=== PATIENT | female | born 1935 | race Caucasian/White ===

== ENCOUNTER → 2016-03-18 | Outpatient (CLI) | payer MEDICARE, OTHER ==
[2016-03-18 12:21] LABS: ABSOLUTE BASOPHILS # (AUTO) 0.1 10^3/uL (0.0-0.2); ABSOLUTE EOSINOPHILS # (AUTO) 0.2 10^3/uL (0.0-0.6); ABSOLUTE MONOCYTES (AUTO) 0.3 10^3/uL (0.1-1.4); ABSOLUTE NEUT (AUTO) 3.2 10^3/uL (1.7-8.2); EOSINOPHILS % (AUTO) 3.6 % (0-6); HEMATOCRIT 43.7 % (36.0-47.0); HEMOGLOBIN 14.4 g/dL (12.0-15.5); HGB HCT DIFFERENCE -0.5; LYMPHOCYTES % (AUTO) 34.7 % (13-45); MEAN CORPUSCULAR HEMOGLOBIN 27.4 pg (27.0-33.4); MEAN CORPUSCULAR VOLUME 83 fl (80-97); MONOCYTES % (AUTO) 5.5 % (3-13); RED BLOOD COUNT 5.25 10^6/uL (3.72-5.28); RED CELL DISTRIBUTION WIDTH 15.4 % (11.5-14.0); SEGMENTED NEUTROPHILS % (AUTO) 55.2 % (42-78); WHITE BLOOD COUNT 5.7 10^3/uL (4.0-10.5)
[2016-03-18 12:26] LABS: APPEARANCE,URINE CLEAR; BILIRUBIN,URINE NEGATIVE (NEGATIVE); GLUCOSE, URINE NEGATIVE (NEGATIVE); KETONES,URINE NEGATIVE (NEGATIVE); LEUKOCYTE ESTERASE,URINE NEGATIVE (NEGATIVE); NITRITE,URINE NEGATIVE (NEGATIVE); PROTEIN,URINE NEGATIVE (NEGATIVE); URINE SPECIFIC GRAVITY 1.008; UROBILINOGEN,URINE NEGATIVE mg/dL (<2.0)
[2016-03-18 12:47] LABS: ALANINE AMINOTRANSFERASE 33 U/L (9-52); ALBUMIN 4.8 g/dL (3.5-5.0); ALKALINE PHOSPHATASE 80 U/L (38-126); ANION GAP 13 (5-19); ASPARTATE AMINO TRANSFERASE 27 U/L (14-36); BILIRUBIN,TOTAL 0.7 mg/dL (0.2-1.3); BLOOD UREA NITROGEN 21 mg/dL (7-20); CALCIUM 9.7 mg/dL (8.4-10.2); CARBON DIOXIDE 27 mmol/L (22-30); CHLORIDE 101 mmol/L (98-107); CREATININE RESULT 0.68 mg/dL (0.52-1.25); GLUCOSE 74 mg/dL (75-110); POTASSIUM 4.3 mmol/L (3.6-5.0); SODIUM 140.9 mmol/L (137-145); TOTAL PROTEIN 7.6 g/dL (6.3-8.2)
== END ==
LOC: OD 10:49
DX: R06.02 Shortness of breath (principal); E78.5 Hyperlipidemia, unspecified; I10 Essential (primary) hypertension; F43.22 Adjustment disorder with anxiety; Z79.899 Other long term (current) drug therapy
CPT/HCPCS: 36415; 71020; 80053; 81001; 83036; 84443; 85025

== ENCOUNTER → 2016-03-30 | Outpatient (CLI) | payer MEDICARE, OTHER | LOC: OD 10:49 | DX: D64.9 Anemia, unspecified (principal); Z79.899 Other long term (current) drug therapy | CPT/HCPCS: 36415; 82607; 82728; 82746; 83540; 83550; 85045 ==

== ENCOUNTER → 2016-04-11 | Outpatient (CLI) | payer MEDICARE, OTHER | LOC: OD 14:08 | DX: J18.1 Lobar pneumonia, unspecified organism (principal); Z78.0 Asymptomatic menopausal state | CPT/HCPCS: 71020 ==

== ENCOUNTER → 2016-04-13 | Outpatient (CLI) | payer MEDICARE, OTHER | LOC: WI 12:18 | DX: J15.0 Pneumonia due to Klebsiella pneumoniae (principal); Z78.0 Asymptomatic menopausal state; M85.88 Other specified disorders of bone density and structure, other site | CPT/HCPCS: 77080 ==

== ENCOUNTER → 2017-06-21 | Outpatient (CLI) | payer MEDICARE, OTHER ==
[2017-06-21 09:06] LABS: ABSOLUTE BASOPHILS # (AUTO) 0.1 10^3/uL (0.0-0.2); ABSOLUTE EOSINOPHILS # (AUTO) 0.4 10^3/uL (0.0-0.6); ABSOLUTE LYMPHOCYTES (AUTO) 1.7 10^3/uL (0.5-4.7); ABSOLUTE MONOCYTES (AUTO) 0.3 10^3/uL (0.1-1.4); ABSOLUTE NEUT (AUTO) 3.2 10^3/uL (1.7-8.2); EOSINOPHILS % (AUTO) 6.6 % (0-6); HEMATOCRIT 40.9 % (36.0-47.0); HEMOGLOBIN 13.4 g/dL (12.0-15.5); LYMPHOCYTES % (AUTO) 30.3 % (13-45); MEAN CORPUSCULAR HEMOGLOBIN 27.5 pg (27.0-33.4); MEAN CORPUSCULAR HGB CONC 32.8 g/dL (32.0-36.0); MEAN CORPUSCULAR VOLUME 84 fl (80-97); MONOCYTES % (AUTO) 5.9 % (3-13); PLATELET COUNT 269 10^3/uL (150-450); RED CELL DISTRIBUTION WIDTH 14.9 % (11.5-14.0); SEGMENTED NEUTROPHILS % (AUTO) 56.2 % (42-78); TOTAL CELLS COUNTED % (AUTO) 100 %; WHITE BLOOD COUNT 5.6 10^3/uL (4.0-10.5)
[2017-06-21 09:39] LABS: BLOOD UREA NITROGEN 21 mg/dL (7-20); CALCIUM 9.5 mg/dL (8.4-10.2); GLUCOSE 96 mg/dL (75-110)
[2017-06-21 09:40] LABS: ALANINE AMINOTRANSFERASE 24 U/L (9-52); ALBUMIN 4.3 g/dL (3.5-5.0); ALKALINE PHOSPHATASE 75 U/L (38-126); ANION GAP 11 (5-19); ASPARTATE AMINO TRANSFERASE 23 U/L (14-36); BILIRUBIN,DIRECT 0.3 mg/dL (0.0-0.4); BILIRUBIN,TOTAL 0.3 mg/dL (0.2-1.3); CARBON DIOXIDE 32 mmol/L (22-30); CHLORIDE 102 mmol/L (98-107); CHOLESTEROL 220.09 mg/dL (0-200); POTASSIUM 4.6 mmol/L (3.6-5.0); TOTAL PROTEIN 7.2 g/dL (6.3-8.2); TRIGLYCERIDES 92 mg/dL (<150)
[2017-06-21 09:50] LABS: DIRECT LDL 138 mg/dL (<100)
== END ==
LOC: OD 08:00
PROVIDERS: ATTEND Family Medicine Geriatric Medicine
DX: I10 Essential (primary) hypertension (principal); E78.5 Hyperlipidemia, unspecified; E55.9 Vitamin D deficiency, unspecified; Z79.899 Other long term (current) drug therapy
CPT/HCPCS: 36415; 80053; 80061; 82652; 84443; 85025

== ENCOUNTER → 2017-07-03 | Outpatient (CLI) | payer MEDICARE, OTHER ==
--- NOTE | 2017-07-03 13:34 | RADIOLOGY REPORT (SQ) ---
EXAM DESCRIPTION: LUMBAR SPINE COMPLETE COMPLETED DATE/TIME: 07/03/2017 1:11 pm REASON FOR STUDY: MARTHA SI PAIN M53.3 SACROCOCCYGEAL DISORDERS, NOT ELSEWHERE CLASSIFIED COMPARISON: 10/02/2006 lumbar spine five views Sacrum and coccyx same date NUMBER OF VIEWS: Five views including obliques. TECHNIQUE: AP, lateral, oblique, and sacral radiographic images acquired of the lumbar spine. LIMITATIONS: None. FINDINGS: MINERALIZATION: Osteopenic SEGMENTATION: Normal. No transitional anatomy. ALIGNMENT: There is convex leftward lumbar degenerative curvature, about 30. This is due to asymmet zoey disc space loss of height right greater than left at L1-2, L2-3, and L3-4. Degenerative scoliosi s has progressed since 2006. VERTEBRAE: Maintained height. No fracture or worrisome bone lesion. DISCS: High-grade disc space loss of height right greater than left, from L1-2 through L3-4. POSTERIOR ELEMENTS: Pedicles and facets are intact. No pars defect or posterior arch defects. Diffu se lumbar facet arthropathy HARDWARE: None in the spine. PARASPINAL SOFT TISSUES: Normal. PELVIS: Not included in the field of view OTHER: No other significant finding. IMPRESSION: Degenerative convex leftward lumbar scoliosis. Multilevel degenerative disc changes. F acet arthropathy throughout the lumbar spine. TECHNICAL DOCUMENTATION: JOB ID: [id number] [employer]- All Rights Reserved Reading location - IP/workstation name: [email or web address]
--- NOTE | 2017-07-03 13:36 | RADIOLOGY REPORT (SQ) ---
EXAM DESCRIPTION: SACRUM AND COCCYX COMPLETED DATE/TIME: 07/03/2017 1:11 pm REASON FOR STUDY: MARTHA SI PAIN M53.3 SACROCOCCYGEAL DISORDERS, NOT ELSEWHERE CLASSIFIED COMPARISON: Lumbar spine films same date NUMBER OF VIEWS: Three views. TECHNIQUE: AP, lateral, and tilt views of the sacrum and coccyx. LIMITATIONS: None. FINDINGS: MINERALIZATION: Osteopenic BONES: No acute fracture or dislocation. No worrisome bone lesions. SOFT TISSUES: No soft tissue swelling. No foreign body. OTHER: High-grade disc space loss of height at L5-S1. IMPRESSION: Unremarkable sacrum and coccyx. TECHNICAL DOCUMENTATION: JOB ID: [id number] [employer]- All Rights Reserved Reading location - IP/workstation name: [email or web address]
== END ==
LOC: OD 12:38
PROVIDERS: ATTEND Family Medicine Geriatric Medicine
DX: M53.3 Sacrococcygeal disorders, not elsewhere classified (principal)
CPT/HCPCS: 72110; 72220

== ENCOUNTER → 2018-02-19 | Outpatient (CLI) | payer MEDICARE ==
[2018-02-19 11:38] LABS: ABSOLUTE EOSINOPHILS # (AUTO) 0.1 10^3/uL (0.0-0.6); ABSOLUTE LYMPHOCYTES (AUTO) 1.8 10^3/uL (0.5-4.7); ABSOLUTE MONOCYTES (AUTO) 0.2 10^3/uL (0.1-1.4); ABSOLUTE NEUT (AUTO) 2.2 10^3/uL (1.7-8.2); BASOPHILS % (AUTO) 0.8 % (0-2); EOSINOPHILS % (AUTO) 3.1 % (0-6); HEMATOCRIT 40.8 % (36.0-47.0); HEMOGLOBIN 13.9 g/dL (12.0-15.5); LYMPHOCYTES % (AUTO) 40.1 % (13-45); MEAN CORPUSCULAR HEMOGLOBIN 28.1 pg (27.0-33.4); MEAN CORPUSCULAR HGB CONC 34.1 g/dL (32.0-36.0); MEAN CORPUSCULAR VOLUME 82 fl (80-97); MONOCYTES % (AUTO) 5.4 % (3-13); PLATELET COUNT 252 10^3/uL (150-450); RED BLOOD COUNT 4.95 10^6/uL (3.72-5.28); RED CELL DISTRIBUTION WIDTH 14.8 % (11.5-14.0); SEGMENTED NEUTROPHILS % (AUTO) 50.6 % (42-78); TOTAL CELLS COUNTED % (AUTO) 100 %; WHITE BLOOD COUNT 4.4 10^3/uL (4.0-10.5)
[2018-02-19 11:59] LABS: ALANINE AMINOTRANSFERASE 16 U/L (9-52); ALBUMIN 4.5 g/dL (3.5-5.0); ALKALINE PHOSPHATASE 71 U/L (38-126); ANION GAP 11 (5-19); ASPARTATE AMINO TRANSFERASE 30 U/L (14-36); BILIRUBIN,DIRECT 0.2 mg/dL (0.0-0.4); BILIRUBIN,TOTAL 0.8 mg/dL (0.2-1.3); BLOOD UREA NITROGEN 13 mg/dL (7-20); CALCIUM 9.6 mg/dL (8.4-10.2); CARBON DIOXIDE 27 mmol/L (22-30); CHLORIDE 102 mmol/L (98-107); GLUCOSE 95 mg/dL (75-110); POTASSIUM 4.1 mmol/L (3.6-5.0); SODIUM 140.1 mmol/L (137-145); TOTAL PROTEIN 7.5 g/dL (6.3-8.2)
== END ==
LOC: OD 10:05
PROVIDERS: ATTEND Family Medicine Geriatric Medicine
DX: K21.9 Gastro-esophageal reflux disease without esophagitis (principal); I10 Essential (primary) hypertension; Z79.899 Other long term (current) drug therapy
CPT/HCPCS: 36415; 80053; 85025

== ENCOUNTER → 2018-09-19 | Outpatient (CLI) | payer MEDICARE ==
[2018-09-19 09:35] LABS: ABSOLUTE EOSINOPHILS # (AUTO) 0.2 10^3/uL (0.0-0.6); ABSOLUTE LYMPHOCYTES (AUTO) 1.5 10^3/uL (0.5-4.7); ABSOLUTE MONOCYTES (AUTO) 0.3 10^3/uL (0.1-1.4); ABSOLUTE NEUT (AUTO) 2.5 10^3/uL (1.7-8.2); BASOPHILS % (AUTO) 0.8 % (0-2); EOSINOPHILS % (AUTO) 4.8 % (0-6); HEMOGLOBIN 12.8 g/dL (12.0-15.5); LYMPHOCYTES % (AUTO) 33.4 % (13-45); MEAN CORPUSCULAR HEMOGLOBIN 26.3 pg (27.0-33.4); MEAN CORPUSCULAR HGB CONC 32.9 g/dL (32.0-36.0); MEAN CORPUSCULAR VOLUME 80 fl (80-97); MONOCYTES % (AUTO) 6.2 % (3-13); PLATELET COUNT 233 10^3/uL (150-450); RED BLOOD COUNT 4.89 10^6/uL (3.72-5.28); RED CELL DISTRIBUTION WIDTH 15.9 % (11.5-14.0); SEGMENTED NEUTROPHILS % (AUTO) 54.8 % (42-78); TOTAL CELLS COUNTED % (AUTO) 100 %; WHITE BLOOD COUNT 4.5 10^3/uL (4.0-10.5)
[2018-09-19 09:55] LABS: ALBUMIN 4.2 g/dL (3.5-5.0); ALKALINE PHOSPHATASE 68 U/L (38-126); ANION GAP 6 (5-19); ASPARTATE AMINO TRANSFERASE 24 U/L (14-36); BILIRUBIN,DIRECT 0.2 mg/dL (0.0-0.4); BILIRUBIN,TOTAL 0.4 mg/dL (0.2-1.3); BLOOD UREA NITROGEN 16 mg/dL (7-20); CALCIUM 9.3 mg/dL (8.4-10.2); CARBON DIOXIDE 29 mmol/L (22-30); CHLORIDE 105 mmol/L (98-107); GLUCOSE 103 mg/dL (75-110); POTASSIUM 4.5 mmol/L (3.6-5.0); TOTAL PROTEIN 6.9 g/dL (6.3-8.2)
== END ==
LOC: OD 08:51
PROVIDERS: ATTEND Family Medicine Geriatric Medicine
DX: I10 Essential (primary) hypertension (principal); K21.9 Gastro-esophageal reflux disease without esophagitis; E55.9 Vitamin D deficiency, unspecified; Z79.899 Other long term (current) drug therapy; R31.9 Hematuria, unspecified; N81.10 Cystocele, unspecified
CPT/HCPCS: 36415; 80053; 85025; 87086; 87088

== ENCOUNTER → 2018-10-30 | Outpatient (CLI) | payer MEDICARE ==
[2018-10-30 13:23] LABS: APPEARANCE,URINE CLOUDY; BILIRUBIN,URINE NEGATIVE (NEGATIVE); COLOR,URINE YELLOW; GLUCOSE, URINE NEGATIVE (NEGATIVE); KETONES,URINE NEGATIVE (NEGATIVE); LEUKOCYTE ESTERASE,URINE LARGE (NEGATIVE); NITRITE,URINE NEGATIVE (NEGATIVE); PROTEIN,URINE NEGATIVE (NEGATIVE); URINE SPECIFIC GRAVITY 1.013; UROBILINOGEN,URINE NEGATIVE mg/dL (<2.0)
== END ==
LOC: OD 12:29
PROVIDERS: ATTEND Family Medicine Geriatric Medicine
DX: N81.10 Cystocele, unspecified (principal); R31.9 Hematuria, unspecified
CPT/HCPCS: 81001; 87086; 87088

== ENCOUNTER 2019-06-21 12:34 | Emergency (ER) | payer MEDICARE ==
--- NOTE | 2019-06-21 12:46 | ER Document Report ---
ED General - General Stated Complaint: SHORTNESS OF BREATH Time Seen by Provider: 06/21/19 12:45 Primary Care Provider: JENNYFER MILLER MD [Primary Care Provider] - Follow up as needed Mode of Arrival: Ambulatory Information source: Patient TRAVEL OUTSIDE OF THE [place] IN LAST 30 DAYS: No - HPI Onset: Other - over the last 2-3 days Onset/Duration: Gradual Quality of pain: Achy Severity: Severe Pain Level: 1 Associated symptoms: Nonproductive cough, Leg swelling, Shortness of breath Exacerbated by: Other - exertion Relieved by: Other - rest Similar symptoms previously: No Recently seen / treated by doctor: No Notes: 84 year old female with a history of HTN here in the ER for shortness of breath, swelling of her legs, and a dry cough for the last 2-3 days. The patient says she feels out of breath simply doing the dishes which is not normal for her. The patient denies fevers, chills, sweats, nausea, vomiting, Orthopnea. The patient says she is completely out of breath walking from one end of a room to another. The patient has had some mild pains between her shoulder blades at times as well. - Related Data Allergies/Adverse Reactions: pneumococcal vaccine Allergy (Intermediate, Verified 06/21/19 13:10) Edema Past Medical History - General Information source: Patient - Social History Smoking Status: Never Smoker Frequency of alcohol use: None Drug Abuse: None Family History: Reviewed & Not Pertinent Patient has suicidal ideation: No Patient has homicidal ideation: No - Past Medical History Cardiac Medical History: Reports: Hx Hypertension - 2009 Denies: Hx Coronary Artery Disease, Hx Heart Attack Pulmonary Medical History: Denies: Hx Asthma, Hx Bronchitis, Hx COPD, Hx Pneumonia Neurological Medical History: Denies: Hx Cerebrovascular Accident, Hx Seizures Musculoskeletal Medical History: Reports Hx Arthritis - generalized - Immunizations Hx Diphtheria, Pertussis, Tetanus Vaccination: Yes Hx Pneumococcal Vaccination: 09/15/12 Review of Systems - Review of Systems Constitutional: No symptoms reported EENT: No symptoms reported Cardiovascular: Dyspnea, Edema - of legs Respiratory: Cough - dry, Short of breath Gastrointestinal: No symptoms reported Genitourinary: No symptoms reported Female Genitourinary: No symptoms reported Musculoskeletal: No symptoms reported Skin: No symptoms reported Hematologic/Lymphatic: No symptoms reported Neurological/Psychological: No symptoms reported -: Yes All other systems reviewed and negative Physical Exam - Vital signs Vitals: Temp Pulse Resp BP Pulse Ox 97.7 F 122 H 24 H 142/98 H 92 06/21/19 12:40 06/21/19 12:40 06/21/19 12:40 06/21/19 12:40 06/21/19 12:40 - Notes Notes: GENERAL: Well-appearing, well-nourished and in no acute distress. HEAD: Atraumatic, normocephalic. EYES: Pupils equal round and reactive to light, extraocular movements intact, sclera anicteric, conjunctiva are normal. ENT: External ears normal, nares patent, oropharynx clear without exudates. Moist mucous membranes. NECK: Normal range of motion, supple without lymphadenopathy or JVD. LUNGS: Breath sounds clear to auscultation bilaterally and equal. No wheezes rales or rhonchi. HEART: Tachycardic, regular rhythm without murmurs, rubs or gallops. ABDOMEN: Soft, nontender, normoactive bowel sounds. No guarding, no rebound. No masses appreciated. EXTREMITIES: Edema of lower legs. Normal range of motion. No clubbing or cyanosis. NEUROLOGICAL: Cranial nerves II through XII grossly intact. Normal speech, normal gait. PSYCH: Normal mood, normal affect. SKIN: Warm, Dry, normal turgor, no rashes or lesions noted. Course - Re-evaluation Re-evalutation: 06/21/19 16:59 The patient is here for symptoms of new onset heart failure. Patient's BNP was very elevated and her Trop was slightly elevated. Dr. Sanchez of Cardiology was consulted and he said he would happy to perform an echo given the patient has new onset heart failure. Prior to obtaining the Echo, the decision was made by me to order a CTA to rule out PE given the patient had persistent tachycardia and no edema on chest Xray to explain the patient's shortness of breath. CT showed bilateral PE. Patient therefore treated with Heparin and IV Lasix. Patient had an Echo performed in the ER and the Echo showed right heart strain. Dr. Sanchez and Dr Stern (Hospitalist) felt the patient would be best served at a [facility] for potential thrombolytic therapy. 06/21/19 17:18 [facility] was consulted and Dr. Mandujano of the CICU accepted the patient in transfer. Dr. Mandujano agreed with heparin treatment for now and re-evaluation of the patient once she gets to [facility] to determine if Thrombolytics are indicated. - Vital Signs Vital signs: Temp Pulse Resp BP Pulse Ox 97.7 F 122 H 24 H 142/98 H 95 06/21/19 12:57 06/21/19 12:40 06/21/19 12:40 06/21/19 12:40 06/21/19 13:09 - Laboratory Result Diagrams: 06/21/19 12:56 06/21/19 12:56 Laboratory results interpreted by me: 06/21/19 06/21/19 06/21/19 12:56 12:56 12:56 MCV 78 L MCH 25.7 L RDW 17.0 H Sodium 132.4 L Chloride 97 L Carbon Dioxide 19 L BUN 26 H Est GFR ( Amer) 57 L Est GFR (MDRD) Non-Af 47 L Glucose 195 H AST 59 H ALT 62 H Alkaline Phosphatase 127 H NT-Pro-B Natriuret Pep 31848 H - Diagnostic Test Radiology reviewed: Image reviewed, Reports reviewed - EKG Interpretation by Me EKG shows normal: Sinus rhythm Rate: Tachycardia [place]/QRS: Right axis deviation Additional EKG results interpreted by me: 06/21/19 13:56 q waves in inferior leads Critical Care Note - Critical Care Note Total time excluding time spent on procedures (mins): 40 Discharge - Discharge Clinical Impression: Shortness of breath Heart failure Qualifiers: Heart failure type: unspecified Heart failure chronicity: acute Qualified Code(s): I50.9 - Heart failure, unspecified Pulmonary embolism Qualifiers: Pulmonary embolism type: unspecified Chronicity: acute Acute cor pulmonale presence: with acute cor pulmonale Qualified Code(s): I26.09 - Other pulmonary embolism with acute cor pulmonale Condition: Stable Disposition: [facility] Admitting Provider: Dr. Mandujano Unit Admitted: ICU Referrals: JENNYFER MILLER MD [Primary Care Provider] - Follow up as needed
[2019-06-21 13:26] LABS: ABSOLUTE BASOPHILS # (AUTO) 0.1 10^3/uL (0.0-0.2); ABSOLUTE LYMPHOCYTES (AUTO) 2.3 10^3/uL (0.5-4.7); ABSOLUTE MONOCYTES (AUTO) 0.6 10^3/uL (0.1-1.4); ABSOLUTE NEUT (AUTO) 6.9 10^3/uL (1.7-8.2); BASOPHILS % (AUTO) 0.6 % (0-2); EOSINOPHILS % (AUTO) 0.2 % (0-6); HEMATOCRIT 40.1 % (36.0-47.0); HEMOGLOBIN 13.2 g/dL (12.0-15.5); LYMPHOCYTES % (AUTO) 23.1 % (13-45); MEAN CORPUSCULAR HEMOGLOBIN 25.7 pg (27.0-33.4); MEAN CORPUSCULAR HGB CONC 32.9 g/dL (32.0-36.0); MEAN CORPUSCULAR VOLUME 78 fl (80-97); MONOCYTES % (AUTO) 5.8 % (3-13); PLATELET COUNT 367 10^3/uL (150-450); RED BLOOD COUNT 5.14 10^6/uL (3.72-5.28); SEGMENTED NEUTROPHILS % (AUTO) 70.3 % (42-78); TOTAL CELLS COUNTED % (AUTO) 100 %; WHITE BLOOD COUNT 9.9 10^3/uL (4.0-10.5)
--- NOTE | 2019-06-21 13:39 | RADIOLOGY REPORT (SQ) ---
EXAM DESCRIPTION: CHEST SINGLE VIEW IMAGES COMPLETED DATE/TIME: 06/21/2019 1:31 pm REASON FOR STUDY: SOB COMPARISON: None. EXAM PARAMETERS: NUMBER OF VIEWS: One view. TECHNIQUE: Single frontal radiographic view of the chest acquired. RADIATION DOSE: NA LIMITATIONS: None. FINDINGS: LUNGS AND PLEURA: No opacities, masses or pneumothorax. No pleural effusion. MEDIASTINUM AND HILAR STRUCTURES: No masses. Contour normal. HEART AND VASCULAR STRUCTURES: Heart normal in size. Normal vasculature. BONES: No acute findings. HARDWARE: None in the chest. OTHER: No other significant finding. IMPRESSION: NO ACUTE RADIOGRAPHIC FINDING IN THE CHEST. TECHNICAL DOCUMENTATION: JOB ID: [id number] 2010 [employer]- All Rights Reserved Reading location - IP/workstation name: [email or web address]
[2019-06-21 13:52] LABS: ALBUMIN 4.3 g/dL (3.5-5.0); ALKALINE PHOSPHATASE 127 U/L (38-126); ANION GAP 16 (5-19); ASPARTATE AMINO TRANSFERASE 59 U/L (14-36); BILIRUBIN,TOTAL 0.9 mg/dL (0.2-1.3); BLOOD UREA NITROGEN 26 mg/dL (7-20); CALCIUM 9.4 mg/dL (8.4-10.2); CARBON DIOXIDE 19 mmol/L (22-30); CHLORIDE 97 mmol/L (98-107); GLUCOSE 195 mg/dL (75-110); POTASSIUM 4.6 mmol/L (3.6-5.0); TOTAL PROTEIN 7.6 g/dL (6.3-8.2)
[2019-06-21 14:05] LABS: TROPONIN I 0.068 ng/mL
[2019-06-21] MEDS ORDERED: FUROSEMIDE INJ/PF 20 MG/2 ML SDV IV ONE (14:13)
--- NOTE | 2019-06-21 14:57 | RADIOLOGY REPORT (SQ) ---
EXAM DESCRIPTION: CTA CHEST IMAGES COMPLETED DATE/TIME: 06/21/2019 2:32 pm REASON FOR STUDY: rule out PE COMPARISON: Chest x-ray done earlier the same day. TECHNIQUE: CT scan of the chest performed using helical scanning technique with dynamic intravenous contrast injection. Images reviewed with lung, soft tissue and bone windows. Reconstructed coronal and sagittal MPR images reviewed. Additional 3 dimensional post-processing performed to develop Maximal Intensity Projection images (TX P). All images stored on PACS. All CT scanners at this facility use dose modulation, iterative reconstruction, and/or weight based d osing when appropriate to reduce radiation dose to as low as reasonably achievable (ALARA). [facility]: Dose Right [facility]: CareDose [facility]: Dose Right [facility]: Teradose 4D [facility]: [employer] CONTRAST TYPE AND DOSE: contrast/concentration: Isovue 350.00 mg/ml; Total Contrast Delivered: 52.0 ml; Total Saline Delivered: 65.0 ml Contrast bolus optimized for the pulmonary arteries. Not diagnostic for the aorta. RENAL FUNCTION: BUN 26, creatinine 1.10 RADIATION DOSE: CT Rad equipment meets quality standard of care and radiation dose reduction techniq ues were employed. CTDIvol: 13.2 - 14.5 mGy. DLP: 537 mGy-cm. . LIMITATIONS: None. FINDINGS: LUNGS AND PLEURA: Minimal pleural thickening in the right base and minimal basilar atelect asis. AORTA AND GREAT VESSELS: No aneurysm. Contrast bolus not optimized for the aorta. HEART: No pericardial effusion. No significant coronary artery calcifications. PULMONARY ARTERIES: Large central pulmonary emboli which extend into segmental and sub segmental bran ches bilaterally. HILAR AND MEDIASTINAL STRUCTURES: No identified masses or abnormal nodes. HARDWARE: None in the chest. UPPER ABDOMEN: Reflux into the intrahepatic IVC consistent with some right-sided heart failure. THYROID AND OTHER SOFT TISSUES: No masses. No adenopathy. BONES: No acute or significant finding. 3D MIPS: Confirm above findings. OTHER: No other significant finding. IMPRESSION: Large central bilateral pulmonary emboli with extension into segmental and subsegmental branches. Intrahepatic IVC reflux consistent with right-sided heart strain. COMMENT: This report was called to JENNIFER DESOUZA MD at14:51 on 06/21/2019. Quality ID # [id number]: Final reports with documentation of one or more dose reduction techniques (e.g., Au tomated exposure control, adjustment of the mA and/or kV according to patient size, use of iterative reconstruction technique) TECHNICAL DOCUMENTATION: JOB ID: [id number] 2010 [employer]- All Rights Reserved Reading location - IP/workstation name: [email or web address]
[2019-06-21 15:17] LABS: INTERNATIONAL RATION (INR) 1.19; PROTHROMBIN TIME 15.2 SEC (11.4-15.4)
[2019-06-21 15:19] LABS: PARTIAL THROMBOPLASTIN TIME 26.1 SEC (23.5-35.8)
[2019-06-21] MEDS ORDERED: HEPARIN SOD (PORCINE) 1,000 UNIT/ML 10 ML VIAL IV ONE (15:42)
[2019-06-21] MEDS ORDERED: HEPARIN SODIUM,PORCINE/D5W 25,000 UNIT/250 ML RTUINJ IV PRN (15:42)
--- NOTE | 2019-06-21 16:11 | PDOC CONSULTATION ---
Consultation Consult Date: 06/21/19 Attending physician:: JENNIFER MORIN Provider Consulted: LAURA QUEEN Consult reason:: Heart failure, PE History of Present Illness Admission Date/PCP: JENNYFER MILLER MD Patient complains of: Shortness of breath, cough History of Present Illness: ROMI FERGUSON is a 84 year old female with a history of hypertension, GERD, who presents to the hospital with complaints of several days of shortness of breath and persistent nonproductive cough. Patient denies any hemoptysis. Patient expresses significantly progressive dyspnea on exertion and now becomes very dyspneic even from walking room to room. She becomes very conversationally dyspneic unable to complete full sentences without catching her breath. She denies any chest pain. She denies any nausea vomiting or any history of heart disease. Denies history of CHF, [place], stroke. Past Medical History Cardiac Medical History: Reports: Hypertension - 2009 Denies: Congestive Heart Failure, Coronary Artery Disease, Myocardial Infarction Pulmonary Medical History: Denies: Asthma, Bronchitis, Chronic Obstructive Pulmonary Disease (COPD), Pneumonia Neurological Medical History: Denies: Seizures GI Medical History: Reports: Gastroesophageal Reflux Disease Musculoskeltal Medical History: Reports: Arthritis - generalized Hematology: Denies: Anemia Past Surgical History Past Surgical History: Reports: Other Social History Smoking Status: Never Smoker Electronic Cigarette use?: No Frequency of Alcohol Use: Occasional Hx Recreational Drug Use: No - Advance Directive Resuscitation Status: Full Code Family History Family History: Hypertension Parental Family History Reviewed: Yes Children Family History Reviewed: Unknown Sibling(s) Family History Reviewed.: Yes Medication/Allergy Home Medications: Ergocalciferol (Vitamin D2) [Drisdol 50,000 unit (1.25MG) Capsule] 50,000 unit PO Q7D 06/21/19 Losartan Potassium [Cozaar 50 mg Tablet] 50 mg PO DAILY 06/21/19 Omeprazole 40 mg PO DAILY 06/21/19 Sertraline HCl [Zoloft 50 mg Tablet] 100 mg PO DAILY 06/21/19 Allergies/Adverse Reactions: pneumococcal vaccine Allergy (Intermediate, Verified 06/21/19 13:10) Edema Review of Systems Constitutional: ABSENT: fatigue, fever(s) Eyes: ABSENT: visual disturbances Nose, Mouth, and Throat: ABSENT: headache(s) Cardiovascular: PRESENT: dyspnea on exertion. ABSENT: chest pain Respiratory: PRESENT: cough, dyspnea. ABSENT: hemoptysis, sputum Gastrointestinal: ABSENT: abdominal pain, nausea, vomiting Genitourinary: ABSENT: dysuria Integumentary: ABSENT: diaphoresis Neurological: ABSENT: dizziness, syncope Psychiatric: PRESENT: depression - Prior history but not currently Hematologic/Lymphatic: ABSENT: easy bleeding Physical Exam Vital Signs: Temp Pulse Resp BP Pulse Ox 97.7 F 122 H 24 H 142/98 H 95 06/21/19 12:57 06/21/19 12:40 06/21/19 12:40 06/21/19 12:40 06/21/19 13:09 Intake & Output 06/20/19 06/21/19 06/22/19 06:59 06:59 06:59 Weight 64.1 kg General appearance: PRESENT: no acute distress, cooperative Eye exam: ABSENT: scleral icterus Neck exam: PRESENT: JVD - Very prominent Respiratory exam: PRESENT: clear to auscultation radhika, unlabored, other - Patient becomes very dyspneic when she starts talking. ABSENT: tachypnea, wheezes Cardiovascular exam: PRESENT: +S1, +S2, tachycardia. ABSENT: irregular rhythm GI/Abdominal exam: PRESENT: soft. ABSENT: rebound, rigid, tenderness Extremities exam: PRESENT: other - Trace edema in left leg. Left leg greater than right.. ABSENT: +1 edema, +2 edema Neurological exam: PRESENT: alert, awake, oriented to person, oriented to place, oriented to time, oriented to situation Focused psych exam: ABSENT: pressured speech Skin exam: ABSENT: jaundice Results Laboratory Results: 06/21/19 12:56 06/21/19 12:56 06/21/19 06/21/19 06/21/19 12:56 12:56 12:56 WBC 9.9 RBC 5.14 Hgb 13.2 Hct 40.1 MCV 78 L MCH 25.7 L MCHC 32.9 RDW 17.0 H Plt Count 367 Seg Neutrophils % 70.3 Sodium 132.4 L Potassium 4.6 Chloride 97 L Carbon Dioxide 19 L Anion Gap 16 BUN 26 H Creatinine 1.10 Est GFR ( Amer) 57 L Glucose 195 H Calcium 9.4 Magnesium 2.3 Total Bilirubin 0.9 AST 59 H Alkaline Phosphatase 127 H Total Protein 7.6 Albumin 4.3 06/21/19 12:56 Troponin I 0.068 NT-Pro-B Natriuret Pep 97654 H Impressions: Chest X-Ray 06/21/19 13:05 IMPRESSION: NO ACUTE RADIOGRAPHIC FINDING IN THE CHEST. Chest/Abdomen CTA 06/21/19 13:33 IMPRESSION: Large central bilateral pulmonary emboli with extension into segmental and subsegmental branches. Intrahepatic IVC reflux consistent with right-sided heart strain. Assessment and Plan - Diagnosis (1) Pulmonary embolism with acute cor pulmonale Qualifiers: Pulmonary embolism type: other Chronicity: acute Qualified Code(s): I26.09 - Other pulmonary embolism with acute cor pulmonale Is this a current diagnosis for this admission?: Yes (2) Hypertension Qualifiers: Hypertension type: essential hypertension Qualified Code(s): I10 - Essential (primary) hypertension Is this a current diagnosis for this admission?: Yes - Plan Summary Summary: Patient has submassive pulmonary embolism evidenced by acute right heart failure with significantly elevated BNP, elevated liver enzymes indicating of hepatic vascular congestion and CT findings suggestive of RV strain. LLE > RLE and may likely have dvt there. I discussed result of STAT TTE with Dr. Sanchez and seems to show severe RV dilation, very significant RV dysfunction, moderate TR with elevated pulmonary pressures. Patient will require transfer to tertiary facility with capability of Catheter- directed thrombolysis as patient will be a good candidate for thrombolytic therapy, even despite hemodynamic stability, given severe acute rt heart failure and likelihood to decompensate. In the meantime, start Heparin gtt with bolus. Plan discussed with Dr. Morin - Time Time Spent with patient: 35 or more minutes
--- NOTE | 2019-06-21 17:00 | XCELERA REPORT ---
[address] [address] Transthoracic Echocardiogram Report Name: ROMI FERGUSON Age: 84 yrs Gender: Female : 1935 Patient Status: Emergency Patient Location: ER Study Date: 06/21/2019 03:09 PM History: Pulmonary Embolism Height: 66 in Weight: 141 lb BSA: 1.7 m2 Procedure: A complete two-dimensional transthoracic echocardiogram was performed (2D, M-mode, spectral and color flow Doppler). The study was technically difficult with many images being suboptimal in quality. Reason For Study: PE likely right heart strain Previous Evaluation: No previous studies were available. History: Shortness of breath. Pulmonary Embolism. Ordering Physician: LAURA QUEEN Performed By: Marii Alarcon Interpretation Summary The left ventricle is normal in structure and function. The Ejection Fraction estimate is 60-65% The right ventricle is severely dilated. The right ventricular systolic function is severely reduced. There is a trace amount of mitral regurgitation There is no aortic valve stenosis There is a moderate to severe amount of tricuspid regurgitation There is moderate pulmonary hypertension by echo Minimal pericardial effusion. MMode/2D Measurements & Calculations RVDd: 3.0 cm LVIDd: 3.7 cm FS: 37.4 % Ao root diam: 2.7 cm IVSd: 1.2 cm LVIDs: 2.3 cm EDV(Teich): 59.9 ml Ao root area: 5.9 cm2 LVPWd: 1.0 cm ESV(Teich): 19.0 ml LA dimension: 2.9 cm EF(Teich): 68.2 % Doppler Measurements & Calculations MV E max sandy: MV P1/2t max sandy: Ao V2 max: LV V1 max P.1 cm/sec 149.3 cm/sec 93.0 cm/sec 1.8 mmHg MV A max sandy: MV P1/2t: 30.3 msec Ao max P.5 mmHg LV V1 max: 44.1 cm/sec MVA(P1/2t): 7.3 cm2 67.1 cm/sec MV E/A: 1.8 MV dec slope: 1445 cm/sec2 MV dec time: 0.12 sec PA V2 max: TR max sandy: MV P1/2t-pr_phl: 40.6 cm/sec 359.7 cm/sec 30.3 msec PA max PG: TR max P.8 mmHg 0.66 mmHg Left Ventricle The left ventricle is normal in size. There is moderate concentric left ventricular hypertrophy. The left ventricle is normal in structure and function. The Ejection Fraction estimate is 60-65%. LV diastolic function could not be adequately assessed. Flattened septum is consistent with RV pressure/volume overload. No regional wall motion abnormalities noted. Right Ventricle The right ventricle is severely dilated. The right ventricular systolic function is severely reduced. Atria The right atrium is moderate to severely dilated. The left atrium is mildly dilated. Mitral Valve The mitral valve is not well visualized. The mitral valve is grossly normal. There is a trace amount of mitral regurgitation. Aortic Valve The aortic valve is trileaflet. The aortic valve is normal in structure and function. The aortic valve opens well. There is no aortic valve stenosis. No aortic regurgitation is present. Tricuspid Valve The tricuspid valve is not well visualized, but is grossly normal. There is a moderate to severe amount of tricuspid regurgitation. Right ventricular systolic pressure is estimated to be elevated at 50-60mmHg. There is moderate pulmonary hypertension by echo. Pulmonic Valve The pulmonic valve is normal in structure and function. There is a mild to moderate amount of pulmonic regurgitation. Great Vessels The aortic root is not well visualized. The inferior vena cava appeared dilated and decreased < 50% with respiration (RAP 15-20 mmHg). Effusions Minimal pericardial effusion. : LAURA QUEEN Anil
[2019-06-21 18:24] VITALS: BP 125/98
[2019-06-21] MEDS ORDERED: HEPARIN SOD (PORCINE) 1,000 UNIT/ML 10 ML VIAL IV PRN (18:42)
--- NOTE | 2019-06-21 21:38 | EKG REPORT ---
SEVERITY:- DEFECTIVE ECG - SINUS TACHYCARDIA RIGHT AXIS DEVIATION CONSIDER LEFT VENTRICULAR HYPERTROPHY INFERIOR INFARCT, AGE INDETERMINATE LATERAL LEADS ARE ALSO INVOLVED LIMB LEADS PLACEMENT ERROR, ABOVE INTERPRETATION NOT VALID : Confirmed by: Reuben Diehl MD 21-Jun-2019 21:37:40
== END 2019-06-21 20:30 | disposition short-term general hospital (02) ==
LOC: ER 12:34
DX: R06.02 Shortness of breath (principal); I50.9 Heart failure, unspecified; I26.09 Other pulmonary embolism with acute cor pulmonale; R60.9 Edema, unspecified; I11.0 Hypertensive heart disease with heart failure
CPT/HCPCS: 93005; 99291; 96375; 96365; 96366; 36415; 83735; 85025; 85610; 85730; 80053; 84484; 83880; 93306; 71045; 71275; 93010; J1644 ×2; J1940

== ENCOUNTER 2019-08-22 17:59 | Emergency (ER) | payer MEDICARE ==
--- NOTE | 2019-08-22 18:21 | ER Document Report ---
ED Medical Screen (RME) - General Chief Complaint: Urinary Problem Stated Complaint: FREQUENT URINATION Time Seen by Provider: 08/22/19 18:13 Primary Care Provider: JENNYFER MILLER MD [Primary Care Provider] - Follow up as needed Notes: HPI: 84-year-old female who is not a good historian presenting for evaluation of continued UTI symptoms. States that she was diagnosed with a blood clot last month, also had a UTI. States she took Macrobid for 7 days at the end of July but still has symptoms. Denies back pain pelvic pain vomiting or fever. PHYSICAL EXAMINATION: No tenderness on palpation of the lower abdomen but limited exam in triage secondary to positioning I have greeted and performed a rapid initial assessment of this patient. A comprehensive ED assessment and evaluation of the patient, analysis of test results and completion of medical decision making process will be conducted by an additional ED providers. TRAVEL OUTSIDE OF THE [place] IN LAST 30 DAYS: No - Related Data Allergies/Adverse Reactions: pneumococcal vaccine Allergy (Intermediate, Verified 08/22/19 18:07) Edema Home Medications: see med hx Past Medical History - Social History Chew tobacco use (# tins/day): No Frequency of alcohol use: None Drug Abuse: None - Past Medical History Cardiac Medical History: Reports: Hx Hypertension - 2009 Denies: Hx Congestive Heart Failure, Hx Coronary Artery Disease, Hx Heart Attack Pulmonary Medical History: Denies: Hx Asthma, Hx Bronchitis, Hx COPD, Hx Pneumonia Neurological Medical History: Denies: Hx Cerebrovascular Accident, Hx Seizures GI Medical History: Reports: Hx Gastroesophageal Reflux Disease Musculoskeltal Medical History: Reports Hx Arthritis - generalized Past Surgical History: Reports: Hx Gynecologic Surgery - hysterectomy, Other - Immunizations Hx Diphtheria, Pertussis, Tetanus Vaccination: Yes Physical Exam - Vital signs Vitals: Temp 98.6 F 08/22/19 18:07 Course - Vital Signs Vital signs: Temp Pulse Resp BP Pulse Ox 98.6 F 08/22/19 18:07 Doctor's Discharge - Discharge Referrals: JENNYFER MILLER MD [Primary Care Provider] - Follow up as needed
[2019-08-22 18:58] LABS: ABSOLUTE BASOPHILS # (AUTO) 0.1 10^3/uL (0.0-0.2); ABSOLUTE EOSINOPHILS # (AUTO) 0.2 10^3/uL (0.0-0.6); ABSOLUTE LYMPHOCYTES (AUTO) 1.7 10^3/uL (0.5-4.7); ABSOLUTE MONOCYTES (AUTO) 0.4 10^3/uL (0.1-1.4); ABSOLUTE NEUT (AUTO) 4.2 10^3/uL (1.7-8.2); BASOPHILS % (AUTO) 1.8 % (0-2); EOSINOPHILS % (AUTO) 2.9 % (0-6); HEMOGLOBIN 12.3 g/dL (12.0-15.5); LYMPHOCYTES % (AUTO) 25.5 % (13-45); MEAN CORPUSCULAR HEMOGLOBIN 24.1 pg (27.0-33.4); MEAN CORPUSCULAR HGB CONC 33.3 g/dL (32.0-36.0); MEAN CORPUSCULAR VOLUME 72 fl (80-97); PLATELET COUNT 325 10^3/uL (150-450); RED BLOOD COUNT 5.12 10^6/uL (3.72-5.28); RED CELL DISTRIBUTION WIDTH 20.4 % (11.5-14.0); SEGMENTED NEUTROPHILS % (AUTO) 63.8 % (42-78); TOTAL CELLS COUNTED % (AUTO) 100 %; WHITE BLOOD COUNT 6.6 10^3/uL (4.0-10.5)
[2019-08-22 19:15] LABS: ALBUMIN 4.1 g/dL (3.5-5.0); ALKALINE PHOSPHATASE 119 U/L (38-126); ANION GAP 8 (5-19); ASPARTATE AMINO TRANSFERASE 50 U/L (14-36); BILIRUBIN,DIRECT 0.1 mg/dL (0.0-0.4); BILIRUBIN,TOTAL 0.7 mg/dL (0.2-1.3); BLOOD UREA NITROGEN 19 mg/dL (7-20); CALCIUM 9.3 mg/dL (8.4-10.2); CARBON DIOXIDE 27 mmol/L (22-30); CHLORIDE 103 mmol/L (98-107); GLUCOSE 118 mg/dL (75-110); TOTAL PROTEIN 7.4 g/dL (6.3-8.2)
[2019-08-22 20:54] LABS: APPEARANCE,URINE CLOUDY; BILIRUBIN,URINE NEGATIVE (NEGATIVE); COLOR,URINE YELLOW; GLUCOSE, URINE NEGATIVE (NEGATIVE); KETONES,URINE NEGATIVE (NEGATIVE); LEUKOCYTE ESTERASE,URINE LARGE (NEGATIVE); NITRITE,URINE NEGATIVE (NEGATIVE); PROTEIN,URINE 30 mg/dL (NEGATIVE); URINE SPECIFIC GRAVITY 1.017
[2019-08-22] MEDS ORDERED: CEPHALEXIN 500 MG CAPSULE PO ONE (21:14)
--- NOTE | 2019-08-22 21:15 | ER Document Report ---
ED General - General Chief Complaint: Urinary Problem Stated Complaint: FREQUENT URINATION Time Seen by Provider: 08/22/19 18:13 Primary Care Provider: JENNYFER MILLER MD [Primary Care Provider] - Follow up as needed Notes: Patient is an 84-year-old female that comes emergency department for chief complaint of urinary tract symptoms with frequent urination, foul-smelling urine. Patient denies abdominal pain, nausea, vomiting, fever. Patient was treated several weeks ago for UTI with Macrobid. 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 Past medical history of hysterectomy, hypertension, pulmonary embolism (she was here in July, transferred to [place], she is currently on blood thinner, denies chest pain, shortness of breath, or any compl aints in regards to this). TRAVEL OUTSIDE OF THE [place] 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 - Social History Smoking Status: Never Smoker Chew tobacco use (# tins/day): No Frequency of alcohol use: None Drug Abuse: None Lives with: Family Family History: Reviewed & Not Pertinent Patient has homicidal ideation: No - Past Medical History Cardiac Medical History: Reports: Hx Hypertension - 2009 Denies: Hx Congestive Heart Failure, Hx Coronary Artery Disease, Hx Heart Attack Pulmonary Medical History: Denies: Hx Asthma, Hx Bronchitis, Hx COPD, Hx Pneumonia Neurological Medical History: Denies: Hx Cerebrovascular Accident, Hx Seizures GI Medical History: Reports: Hx Gastroesophageal Reflux Disease Musculoskeletal Medical History: Reports Hx Arthritis - generalized Past Surgical History: Reports: Hx Gynecologic Surgery - hysterectomy, Other - Immunizations Hx Diphtheria, Pertussis, Tetanus Vaccination: Yes Hx Pneumococcal Vaccination: 09/15/12 Review of Systems - Review of Systems Constitutional: No symptoms reported EENT: No symptoms reported Cardiovascular: No symptoms reported Respiratory: No symptoms reported Gastrointestinal: No symptoms reported Genitourinary: See HPI Female Genitourinary: No symptoms reported Musculoskeletal: No symptoms reported Skin: No symptoms reported Hematologic/Lymphatic: No symptoms reported Neurological/Psychological: No symptoms reported Physical Exam - Vital signs Vitals: Temp Pulse Resp BP Pulse Ox 98.6 F 115 H 19 152/101 H 93 08/22/19 18:05 08/22/19 18:05 08/22/19 18:05 08/22/19 18:05 08/22/19 18:05 - Notes Notes: GENERAL: Alert, interacts well. No acute distress. HEAD: Normocephalic, atraumatic. EYES: Pupils equal, round, and reactive to light. Extraocular movements intact. ENT: Oral mucosa moist, tongue midline. Oropharynx unremarkable. Airway patent. NECK: Full range of motion. Supple. Trachea midline. No lymphadenopathy. LUNGS: Clear to auscultation bilaterally, no wheezes, rales, or rhonchi. No respiratory distress. Non-tender chest wall. HEART: Regular rate and rhythm. No murmur ABDOMEN: Soft, non-tender. Non-distended. Bowel sounds present in all 4 quadrants. EXTREMITIES: Moves all 4 extremities spontaneously. No edema, normal radial and dorsalis pedis pulses bilaterally. No cyanosis. BACK: no cervical, thoracic, lumbar midline tenderness. No saddle anesthesia, normal distal neurovascular exam. Moves all extremities in full range of motion. NEUROLOGICAL: Alert and oriented to person, place, and some events. Normal speech. Cranial nerves II through XII grossly intact. Strength 5/5 in all extremities. PSYCH: Normal affect, normal mood. SKIN: Warm, dry, normal turgor. No rashes or lesions noted. Course - Re-evaluation Re-evalutation: Vital signs patient was initially tachycardic but this resolved on recheck. She is not tachycardic on my exam. Patient is talkative, alert, well-appearing. Her abdomen is completely benign, she has no other complaints currently. CBC, chemistry, urinalysis removed, urine does indicate infection, no leukocytosis, no other concerning findings noted. 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 Culture was placed. Provided with Keflex. Discussed expectations, follow-up, return precautions. They state appreciation and agreement. Stable and well-appearing at time of discharge. - Vital Signs Vital signs: Temp Pulse Resp BP Pulse Ox 98.5 F 88 18 145/92 H 99 08/22/19 21:37 08/22/19 21:37 08/22/19 21:37 08/22/19 21:37 08/22/19 21:37 - Laboratory Result Diagrams: 08/22/19 18:40 08/22/19 18:40 Laboratory results interpreted by me: 08/22/19 08/22/19 08/22/19 18:40 18:40 20:32 MCV 72 L MCH 24.1 L RDW 20.4 H Est GFR ( Amer) 52 L Est GFR (MDRD) Non-Af 43 L Glucose 118 H AST 50 H Urine Protein 30 H Urine Blood SMALL H Urine Urobilinogen 4.0 H Ur Leukocyte Esterase LARGE H Discharge - Discharge Clinical Impression: Urinary symptom or sign Condition: Stable Disposition: HOME, SELF-CARE Additional Instructions: Your evaluation is consistent with a urinary tract infection, your remaining evaluation is reassuring. Take the antibiotics as prescribed to completion, we do have a urine culture growing in the lab and you will be contacted for any concerning results. Follow-up with your primary care provider. Return if you worsen including abdominal pain, vomiting, fever, confusion, or any other concerning or worsening symptoms. Prescriptions: Cephalexin Monohydrate [Keflex 500 mg Capsule] 500 mg PO BID 7 Days #14 capsule Referrals: JENNYFER MILLER MD [Primary Care Provider] - Follow up as needed
[2019-08-22 21:44] VITALS: BP 145/92
== END 2019-08-22 21:37 | disposition home or self-care (01) ==
LOC: ER 17:59
DX: R39.198 Other difficulties with micturition (principal); R35.0 Frequency of micturition; Z88.8 Allergy status to other drugs, medicaments and biological substances; Z79.01 Long term (current) use of anticoagulants
CPT/HCPCS: 99283; 36415; 87040; 87086; 85025; 87088; 80053; 81001; A9270